=== PATIENT | female | born 1955 ===

== ENCOUNTER → 2022-04-27 10:50 | Outpatient (BNVA) | payer MEDICARE, SELFPAY | PROVIDERS: Visit Provider Student in an Organized Health Care Education/Training Program | DX: D86.0 Sarcoidosis of lung (principal); R06.02 Shortness of breath; G47.33 Obstructive sleep apnea (adult) (pediatric); Z99.89 Dependence on other enabling machines and devices | CPT/HCPCS: 99202 ==